=== PATIENT | male | born 1980 | race Caucasian/White ===

== ENCOUNTER → 2022-07-22 14:17 | Outpatient (CLI) | payer OTHER, SELFPAY ==
--- NOTE | 2022-07-22 14:18 | ECG_ITS ---
APPROVED REPORT Exam: Resting ECG HR:83 bpm ECG Measurements Heart Rate 83 AXES OR 155 P 67 QRSd 91 QRS 73 QT 342 T -2 QTc 382 Conclusion SINUS RHYTHM NONSPECIFIC T-WAVE ABNORMALITY ABNORMAL ECG UNCONFIRMED REPORT Electronically signed by : Oneil Adkins MD 07/22/2022 20:55:21
--- NOTE | 2022-07-22 14:29 | XR_ITS ---
FINAL REPORT CLINICAL HISTORY: chest pain, ASCVD, hx ND, Hx of ND 01/2020 FINDINGS: Two views of the chest were obtained. The heart size and pulmonary vascularity are within normal limits. The mediastinum is normal. No acute pulmonary abnormality is identified. There is no pneumothorax. The bony thorax is intact. IMPRESSION: No active cardiopulmonary disease. Reviewed, Interpreted and Dictated by Lew Dixon III, MD Transcribed by Cheryl Pal Authenticated and [facility]
[2022-07-22 19:15] LABS: Basophils # 0.1 K/mm3 (0-0.2); Basophils % 0.6 % (0.1-2.0); Eosinophils # 0.1 K/mm3 (0.0-0.4); Eosinophils % 0.7 % (0.1-12.0); Hematocrit 46.2 % (42.0-52.0); Hemoglobin 15.1 g/dL (14.1-18.0); Lymphocytes # 1.5 K/mm3 (0.7-4.5); Lymphocytes % 14.4 % (10-50); Mean Corpuscular HGB Conc 32.7 g/dL (31.8-35.4); Mean Corpuscular Hemoglobin 31.6 pg (27.0-31.2); Mean Corpuscular Volume 96.7 fl (80-94); Mean Platelet Volume 8.4 fl (7.4-10.4); Monocytes # 0.5 K/mm3 (0.1-1.0); Monocytes % 4.3 % (1.7-9.3); Neutrophils # 8.5 K/mm3 (1.8-7.8); Neutrophils % 79.9 % (37.0-80.0); Platelet Count 391 K/mm3 (142-424); Red Blood Count 4.77 M/mm3 (4.60-6.20); Red Cell Distribution Width 12.6 % (11.5-17.5); White Blood Count 10.6 K/mm3 (4.8-10.8)
[2022-07-22 19:47] LABS: Alanine Aminotransferase 12 U/L (12-78); Albumin Level 4.5 g/dl (3.5-5.0); Alkaline Phosphatase 80 U/L (38-126); Anion Gap 11.6 mEq/L (5-15); Aspartate Amino Transferase 20 U/L (17-59); Bilirubin,Total 0.3 mg/dl (0.2-1.3); Blood Urea Nitrogen 12 mg/dl (9-20); Calcium 9.8 mg/dl (8.4-10.2); Carbon Dioxide 27 mmol/L (22.0-30.0); Chloride 102 mmol/L (98-107); Chol/HDL Ratio 4.6 (1-3.5); Cholesterol 196 mg/dl (140-200); Estimated Glomerular Filt Rate 93 ml/min (>60); GFR (African American) 113 ML/MIN (>60); Globulin 2.3 g/dL (1.3-3.2); Glucose 100 mg/dl (74-100); HDL Cholesterol 43 mg/dl (40-60); Potassium 4.6 mmoL/L (3.5-5.1); Sodium 136 mmol/L (136-145); Total Protein,Serum 6.8 g/dl (6.3-8.2); Triglycerides 61 mg/dl (30-150); VLDL Cholesterol 12 mg/dL (0-40)
[2022-07-22 19:59] LABS: Direct LDL Cholesterol 137.17 mg/dL (100-129)
[2022-07-22 20:05] LABS: 25-OH Vitamin D, Total 21.5 ng/mL (30-100)
[2022-07-22 20:18] LABS: Prostate Specific Ag Screen 0.8 ng/ml (0.0-4.0)
[2022-07-22 20:37] LABS: Vitamin B12 237 pg/mL (239-931)
[2022-07-22 20:46] LABS: Hemoglobin A1C 5.6 % (4.0-6.0)
[2022-07-23 12:04] LABS: Triiodothryronine (T3) Uptake 33 % (23.5-40.5)
== END ==
PROVIDERS: Physician Assistant; PCP Nurse Practitioner; Visit Provider Nurse Practitioner
DX: R07.9 Chest pain, unspecified (principal); I25.10 Atherosclerotic heart disease of native coronary artery without angina pectoris; I25.2 Old myocardial infarction; Z13.1 Encounter for screening for diabetes mellitus; Z13.220 Encounter for screening for lipoid disorders; Z13.29 Encounter for screening for other suspected endocrine disorder; Z12.5 Encounter for screening for malignant neoplasm of prostate; Z79.899 Other long term (current) drug therapy
CPT/HCPCS: 71046; 80053; 80061; 82306; 82607; 83036; 84436; 84443; 84479; 85025; 93005; G0103

== ENCOUNTER → 2022-08-04 11:45 | Outpatient (CLI) | payer OTHER, SELFPAY ==
--- NOTE | 2022-08-04 | CA_ITS ---
APPROVED REPORT Exam: Exercise Treadmill Technologist: Aliya Murcia, Ht: 5 ft 9 in Wt: 190 lbs BSA: 2.02 m2 HR: 72 bpm BP: 132/81 mmHg Rhythm: NSR Medical History Medications: Levothyroxine,,,,, Vit D3,,,,, Vit B12,,,,, Cardiac Risk Factors: Smoking Stress Test Details Test: Kala HR Resting HR: 92 bpm Max Heart Rate (APMHR): 179.394527 bpm Max HR Achieved: 160 bpm Target HR (85% APMHR): 152.594937 bpm % of APMHR: 89.39 Recovery HR: 152 bpm BP Resting BP: 120/76 mmHg Max BP: 174/63 mmHg Recovery BP: 136.0/70.0 mmHg ECG Resting ECG: NSR Clinical Reason for Termination: Dyspnea Exercise duration: 12:01 min Highest Stage Achieved: Exercise capacity: 12.8 METs Stress ECG Conclusion During kala protocol pt exercised 12 minutes, 12.8 METS. No CP noted. No arrhythmias noted. <1.5mm ST segment changes. Test Summary REST . . . . . . . Sitting REST . . . . . . . Standing REST 03:45 0.0 0.0 92 . 120/ 76 . . Stage 1 01:00 10.0 1.7 107 . . . . Stage 1 02:00 10.0 1.7 113 . . . . Stage 1 03:00 10.0 1.7 110 . 136/ 79 . . Stage 2 01:00 12.0 2.5 120 . . . . Stage 2 02:00 12.0 2.5 119 . . . . Stage 2 03:00 12.0 2.5 127 . 141/ 80 . . Stage 3 01:00 14.0 3.4 121 . . . . Stage 3 02:00 14.0 3.4 138 . . . . Stage 3 03:00 14.0 3.4 142 . 150/ 85 . . Stage 4 01:00 16.0 4.2 146 . . . . Stage 4 02:00 16.0 4.2 154 . . . . Stage 4 03:00 16.0 4.2 157 . . . . Stage 5 00:01 18.0 5.0 157 . . . Stop exercise at 12:01 RECOVERY 01:00 0.0 0.0 150 . . . . RECOVERY 02:00 0.0 0.0 107 . . . . RECOVERY 03:00 0.0 0.0 96 . 174/ 63 . . RECOVERY 03:11 0.0 0.0 104 . 174/ 63 . . Electronically signed by : Chase Lora MD 08/04/2022 22:16:31
--- NOTE | 2022-08-04 11:45 | US_ITS ---
FINAL REPORT CLINICAL HISTORY: elevated tsh FINDINGS: THYROID ULTRASOUND The right lobe of the thyroid measures 4.4 x 2.0 x 1.7 cm. The left lobe of the thyroid measures 4.1 x 1.5 x 1.4 cm. The thyroid gland is hypervascular with a heterogeneous echotexture.. No dominant mass is seen. IMPRESSION: Hypervascular heterogeneous thyroid likely represents thyroiditis. Reviewed, Interpreted and Dictated by Lew Dixon III, MD Transcribed by Isac Yoder Authenticated and . [facility]
--- NOTE | 2022-08-04 11:45 | NM_ITS ---
APPROVED REPORT Exam: Nuclear Stress Test Indication: chest pain..short of breath..fatigue Patient Location: Outpatient Stress Tech: Aliya Murcia RICKY Tech:Martha ChavisBROCK RT(R)(N) Ht: 5 ft 9 in Wt: 185 lbs HR: 92 bpm BP: 120/76 mmHg BSA: 2.00 m2 TID: 1.15 BMI: 27.3 History: chest pain..short of breath..fatigue Procedure: Patient exercised on Cody protocol 12:01 minutes and sec, resting heart rate 92 bpm, resting blood pressure 120/76 mmHg, with exercise maximum heart rate achived was 160 bpm which is 89 % of the maximum predicted heart rate and blood pressure was 174/63 mmHg. Patient denied any complaint of chest pain. Patient has Good exercise capacity, achieved 12.8 METs of workload on treadmill, the blood pressure response to exercise was Adequate. Electrocardiogram Resting electrocardiogram shows sinus rhythm, with exercise there is less than 1.[address] segment depression noted from the baseline EKG. The EKG portion of the exercise Myoview is negative for ischemia. Cardiac Stress and Resting SPECT Images: Cardiac Stress and Resting SPECT images were obtained using technetium 99m Myoview 28.8 mCi stress and 10.14 mCi at rest. Gated SPECT for analysis of segmental wall motion and calculation of the ejection fraction also done. Cardiac stress and resting SPECT images show uniform myocardial activity without segmental perfusion abnormality, computer derived ejection fraction is 50% with no regional wall motion abnormality, right ventricle is normal size and contractility. Conclusion: 1. The EKG portion of the exercise Myoview is negative for ischemia, patient has good exercise capacity achieved 12.8 METs of workload on treadmill, the blood pressure response to exercise was adequate, there was no exercise-induced chest discomfort. 2. No scintigraphic evidence of reversible ischemia seen, computer derived ejection fraction is 50% with no regional wall motion abnormality, right ventricle is normal size and contractility. 3. Normal exercise Myoview study. Electronically signed by : Chase Lora MD 08/04/2022 22:19:30
--- NOTE | 2022-08-04 12:42 | CA_ITS ---
APPROVED REPORT EXAM: Comprehensive 2D, Doppler, and color-flow Echocardiogram Green Marketer: Soledad Hemphill RVT Ht: 5 ft 9 in Wt: 190lbs BSA: 2.02 BP: 118/67 mmHg Indications: CP,CAD,SMOKER,FATIGUE,FORMER DRUG USE, HX NM 2D Dimensions LVOT 2.09 cm (M/F) 1.5-2.5 LA Volume 20.90 mL LA Volume Index 10.35 mL/m2 (M/F) 16-34 M-Mode Dimensions RVDd 2.34 cm (0.9-2.6) LA Diam 3.60 cm (1.9-4.0) LVDd 4.73 cm (3.5-5.7) Ao Diam 3.26 cm (2.0-3.7) LVDs 3.29 cm (3.5-5.7) IVSd 0.49 cm (0.6-1.1) PWd 0.61 cm (0.6-1.1) EF (Teich) 57.80% FS 30.40% EDV (Teich) 103.90 mL TAPSE 1.92 (<1.7) ESV (Teich) 43.80 mL LV Diastology E Decel Time 197.00 (160-240 msec) E/A Ratio 1.0 MED E' 9.20 (< 7 cm/sec) E'/MED E' Ratio 7.41 (>14) LAT E' 16.60 (<10 cm/sec) E/LAT E' Ratio 4.11 (>14) Aortic Valve AO Peak GR. 4.60 mmHg Mitral Valve MV E Max Ritesh. 68.00 (40-130 cm/s) MV A Velocity 68.00 (40-130 cm/s) E/A Ratio 1.01 MV Decel. Time 197.00 (160-240 ms) MV PHT 58.00 ms Pulmonary Valve PV Peak Velocity 77.00 (50-150 cm/s) Left Ventricle Left atrium is normal size, left ventricle is normal size, estimated ejection fraction 55% with no regional wall motion abnormality, diastolic parameters are within normal range. Right Ventricle Right atrium and right ventricle are normal size and contractility. Aortic Valve Aortic valve is minimally thickened and fibrosed there is no aortic stenosis or aortic insufficiency. Mitral Valve Mitral valve grossly normal, there is trace mitral regurgitation. Tricuspid Valve Tricuspid valve grossly normal, there is trace tricuspid regurgitation, tricuspid regurgitation jet velocity is inadequate for calculation of the right ventricular systolic pressure. Pulmonic Valve Pulmonic valve is poorly visualized. Great Vessels Aortic root is normal size. Inferior vena cava is poorly visualized. Pericardium No significant pericardial effusion noted. Conclusion 1. Normal left ventricular size preserved left ventricular systolic function, estimated ejection fraction 55% with no regional wall motion abnormality. Diastolic parameters are within normal range. 2. Trace mitral and tricuspid regurgitation. 3. No significant pericardial effusion noted. 4. Inferior vena cava is poorly visualized. Electronically signed by : Chase Lora MD 08/04/2022 20:36:07
== END ==
PROVIDERS: PCP Nurse Practitioner; Visit Provider Physician Assistant
DX: R06.00 Dyspnea, unspecified (principal); R07.9 Chest pain, unspecified; I25.10 Atherosclerotic heart disease of native coronary artery without angina pectoris; R53.83 Other fatigue; R79.89 Other specified abnormal findings of blood chemistry; R94.31 Abnormal electrocardiogram [ECG] [EKG]; I25.2 Old myocardial infarction
CPT/HCPCS: 76536; 78452; 93017; 93306; A9502